=== PATIENT | female | born 1945 | race Two or more races ===

== ENCOUNTER 2017-02-28 08:11 | Day surgery (SDC) | payer MEDICARE, MEDICAID ==
[~2017-02-28] VITALS: Ht 154.9 cm; Wt 79.4 kg
[2017-02-28] VITALS (8 sets, daily range): BP systolic 126–155; BP diastolic 65–79
--- NOTE | 2017-02-28 06:41 | Anethesia Preoperative Eval ---
Anesthesia Pre-op PMH/ROS General Date of Evaluation: Feb 28, 2017 Time of Evaluation: 09:30 Anesthesiologist: marietta ASA Score: ASA 2 Mallampati Score Class I : Soft palate, uvula, fauces, pillars visible Class II: Soft palate, uvula, fauces visible Class III: Soft palate, base of uvula visible Class IV: Only hard plate visible Mallampati Classification: Class II Surgeon: leidy Diagnosis: irritable bowel syndrome Surgical Procedure: egd diagnostic/colonoscopy Anesthesia History: none Social History: smoking - non-smoker Family History: no anesthesia problems Allergies: Coded Allergies: No Known Allergies (Unverified , 02/27/17) Medications: see eMAR Past Medical History Cardiovascular: Reports: HTN Gastrointestinal/Genitourinary: Reports: other - constipation Neurologic/Psychiatric: Reports: depression/anxiety Musculoskeletal/Integumentary: Reports: DJD - left tka, OA PSxH Narrative: left tka, c/s Anesthesia Pre-op Phys. Exam Physician Exam Constitutional: NAD, other - flat ecchymotic lesion on right upper extremity Neurologic: CN 2-12 intact Cardiovascular: RRR Respiratory: CTA Gastrointestinal: S/NT/ND Airway Exam Mallampati Score: Class II MO: full Neck: supple TMD: 2fb ROM: full Teeth: intact Anesthesia Pre-op A/P Risk Assessment & Plan Assessment: irritable bowel syndrome Plan: egd diagnostic/colonoscopy Status Change Before Surgery: No Pre-Antibiotics Drug: KALLI Rodriguez Feb 28, 2017 06:41
[~2017-02-28 08:11] MED LIST: ASPIRIN81 MG ORAL; FISH OIL 1,0001 EAC1 ORAL; GLUCOSAMINE CH1 EAC3 PO; HYZAAR 100-251 EACH ORAL; LEXAPRO10 MG ORAL; LIPITOR20 MG ORAL; LR 1000ml 1,000 ML IVLG SCH; MULTIVITAMINS1 EAC2 ORAL; SENNA8.6 M2 PO; VITAMIN C500 M1 ORAL
--- NOTE | 2017-02-28 10:04 | Short Stay Surgery H&P ---
History of Present Illness History of Present Illness Chief Complaint Abdominal pains and screening colon HPI Harriett Nguyễn is a 71 year old female who was admitted on for Irritable Bowel Syndrome with abdominal pains and screening colon being done. Patient History Allergies: Coded Allergies: No Known Allergies (Unverified , 02/27/17) PAST MEDICAL HISTORY: (1) Hyperlipidemia (2) Coronary artery arteriosclerosis Past Surgeries: Social History: Medication History Scheduled Ascorbic Acid* (Vitamin C*), 1,000 MG ORAL DAILY, (Reported) Aspirin* (Aspirin*), 81 MG ORAL DAILY, (Reported) Atorvastatin Calcium* (Lipitor*), 20 MG ORAL DAILY, (Reported) Escitalopram Oxalate* (Lexapro*), 10 MG ORAL DAILY, (Reported) Gluc Hcl/Csa/Fantasma Hy/Hyalur Ac (Glucosamine Chondroitin Cap), 1 EACH PO DA, ( Reported) Losartan/Hydrochlorothiazide 100-25 Tablet (Hyzaar 100-25 Tablet), 1 TAB ORAL DAILY, (Reported) Multivitamins* (Multivitamins*), 1 TAB ORAL DAILY, (Reported) [place]-3 Fatty Acids/Fish Oil* (Fish Oil 1,000 Mg Softgel*), 1 CAP ORAL DAILY, ( Reported) Sennosides (Senna), 8.6 MG PO BID, (Reported) Review of Systems Cardiovascular: Reports: no symptoms Respiratory: Reports: no symptoms Skeletal: Reports: no symptoms Gastrointestinal: Reports: gastro esophageal reflux disease Genitourinary: Reports: no symptoms Neurologic: Reports: no symptoms Endocrine: Reports: no symptoms Hematologic: Reports: no symptoms Physical Exam Vital Signs Last Vital Signs Date Time Temp Pulse Resp B/P Pulse Ox O2 Delivery O2 Flow Rate FiO2 02/28/17 08:57 97.5 56 18 141/70 98 Room Air Skin: normal HENT: normal Heart: normal Lungs: normal Abdomen: normal Extremities: normal Genitourinary: normal Plan Plan of Care Uppr and lower GI edoscopy. Preop Interventions none. Summary of Findings See the reports Final Diagnosis: Attestation Are the patient's medical conditions optimized for surgery? Attestation Response: yes JUSTINE MCKEON Feb 28, 2017 10:04
--- NOTE | 2017-02-28 10:05 | Pre-Procedure Note/Attestation ---
Pre-Procedure Note/Attestation Complete Prior to Procedure Planned Procedure: left Procedure Narrative: Examination of the upepr and the lower MARY tract via endoscopy. Indications for Procedure Pre-Operative Diagnosis: R/O colon polyps/ CA and peptic ulcer/gastritis. Attestation I attest that I discussed the nature of the procedure; its benefits; risks and complications; and alternatives (and the risks and benefits of such alternatives ), prior to the procedure, with the patient (or the patient's legal medical customer service representative). I attest that, if there was a reasonable possibility of needing a blood transfusion, the patient (or the patient's legal medical customer service representative) was given the [place] Department of Health Services standardized written summary, pursuant to the Jani Jamil Blood Safety Act ([place] Health and Safety Code # 1645, as amended). I attest that I re-evaluated the patient just prior to the surgery and that there has been no change in the patient's H&P, except as documented below: JUSTINE MCKEON Feb 28, 2017 10:05
[2017-02-28] MEDS ORDERED: Propofol 10mg/ml 20ml IV ONE (10:15)
[2017-02-28] MEDS ORDERED: LR 1000ml ONE (10:15)
[2017-02-28] MEDS ORDERED: Lidocaine 1% MPF 10mg/ml 5ml ONE (10:15)
--- NOTE | 2017-02-28 10:59 | Endoscopy Procedure Note ---
Endoscopy Procedure Note Indication for Procedure: Abdominal pains, GERDS anad screening colon. Procedures Performed: EGD - Completely normal upper GI endoscopy. Biopsy done per random from gastric body, colonoscopy - Poor colon prep. Sifnificantly redundant colon. Melanosis coli and biospy done from rctum at 20 Cm and mid transverse. Specimen: yes Pt Tolerated Procedure Well: Yes Estimated Blood Loss: none Anesthesiologist: Dr. Monroy Anesthesia: moderate sedation Medication Given: see anesthesia record Implant(s) used?: No 50 yrs or older w/o bx or poly: Yes 10yrs. F/U not recommended: Yes 10 yrs. F/U needed: Yes 18 years or older w/prev. colo: Yes Med reason:<3 yrs.: System Reason:<3 yrs.: JUSTINE MCKEON Feb 28, 2017 10:59
--- NOTE | 2017-02-28 11:00 | Discharge Instructions ---
Discharge Instructions Discharge Instructions Follow up with: Visit the doctor in the office after 2 weeks. For Congestive Heart Failure Reminder Report to your physician any weight gain of 5 pounds or more in one week. JUSTINE MCKEON Feb 28, 2017 10:59
--- NOTE | 2017-02-28 11:18 | Immediate Post-Op Evaluation ---
Immediate Post-Op Evalulation Immediate Post-Op Evalulation Procedure: egd/colonscopy Date of Evaluation: Feb 28, 2017 Time of Evaluation: 11:16 IV Fluids: lr 300ml Blood Products: none Estimated Blood Loss: negligible Blood Pressure Systolic: 129 Blood Pressure Diastolic: 70 Pulse Rate: 57 Respiratory Rate: 18 O2 Sat by Pulse Oximetry: 100 Temperature (Fahrenheit): 97.0 Pain Score (1-10): 0 Nausea: No Vomiting: No Complications none Patient Status: awake, reacts, patent Hydration Status: adequate Drug: KALLI Rodriguez Feb 28, 2017 11:18
[2017-02-28] MEDS ORDERED: LR 1000ml 1,000 ML IVLG SCH (11:21)
--- NOTE | 2017-02-28 11:21 | 48 Hour Post Anesthesia Eval ---
Post Anesthesia Evaluation Procedure: egd/colonscopy Date of Evaluation: Feb 28, 2017 Time of Evaluation: 11:18 Blood Pressure Systolic: 128 0: 68 Pulse Rate: 55 Respiratory Rate: 18 Temperature (Fahrenheit): 97.0 O2 Sat by Pulse Oximetry: 100 Airway: patent Nausea: No Vomiting: No Pain Intensity: 0 Hydration Status: adequate Cardiopulmonary Status: stable Mental Status/LOC: patient returned to baseline Post-Anesthesia Complications: none Follow-up care needed: N/A KALLI RAND Feb 28, 2017 11:21
[2017-02-28] MEDS ORDERED: Midazolam 2mg/2ml Inj IVP PRN (11:30)
[2017-02-28] MEDS ORDERED: Atropine Inj 1mg/10ml Syr IV PRN (11:30)
[2017-02-28] MEDS ORDERED: DiphenhydrAMINE 50mg/ml Inj IVP PRN (11:30)
[2017-02-28] MEDS ORDERED: Hydromorphone 0.5mg/0.5ml inj IVP PRN (11:30)
--- NOTE | 2017-02-28 16:15 | Operative Note - Dictated ---
DATE OF OPERATION: 02/28/2017 PROCEDURE: Total colonoscopy. SURGEON: Pamela Claire M.D. PREOPERATIVE DIAGNOSIS: Screening colonoscopy. POSTOPERATIVE DIAGNOSES: 1. Significantly redundant colon. 2. Poor colonic preparation. 3. Melanosis coli and biopsies were taken from mid transverse and rectal area per random. MEDICATION USED: Per Dr. Allen. INSTRUMENT: GIF Olympus video colonoscope. DESCRIPTION OF PROCEDURE: The patient after arriving in the endoscopy unit, was told about the risks and benefits of the procedure, which she accepted and signed the informed consent. She was then put in the left lateral decubitus position. After adequate IV sedation, scope was gently passed through the anal area, which revealed no any major hemorrhoids. The rectum itself was also clear of any abnormality and mucosal changes. At this point, the scope was gradually advanced into the left colon, which was significantly redundant and filled with liquidy stool signifying lack of adequate preparation. Significant amount of time was taken to pass through this area reaching towards the splenic flexure. There was evidence of pigmentation over the colonic wall suggestive of [id number] melanosis coli. Random biopsy from the rectal area was obtained and subsequently the scope was passed through the splenic flexure guided into transverse colon, hepatic flexure, and finally advanced all the way into the base of the cecum. All these areas remained to be normal. The only finding that lack of adequate preparation of the colon, which made the examination difficult and multiple irrigation had to be given. As such, small diminutive colonic lesions could not be ruled out, but there was no any gross pathology as I mentioned. Finally, within 7 minutes, the scope was gradually pulled out and re-evaluation of the colon did not show any abnormality as I mentioned earlier. The patient tolerated the procedure well and left the endoscopy room in a good condition. Pamela Claire M.D. DR: JEM JOB#: [id number] CC:
--- NOTE | 2017-02-28 16:30 | Operative Note - Dictated ---
DATE OF OPERATION: 02/28/2017 PROCEDURE: Esophagogastroduodenoscopy with biopsy. SURGEON: Pamela Claire M.D. PREOPERATIVE DIAGNOSES: 1. Abdominal pain. 2. History of gastroesophageal reflux. POSTOPERATIVE DIAGNOSES: Completely normal upper gastrointestinal endoscopy. Biopsy was done per random from gastric body. MEDICATIONS USED: Per Dr. Allen. INSTRUMENT: GIF Olympus upper gastrointestinal video endoscope. DESCRIPTION OF PROCEDURE: The patient after arriving endoscopy unit, was told about risks and benefits of the procedure, which she accepted and signed the informed consent. She was then put on the left lateral decubitus position. After adequate IV sedation, the scope was gently passed through the cricopharyngeal area, was lodged into the upper esophagus, gradually advanced towards gastroesophageal junction. The entire length of the esophagus looked normal and there was no evidence of pathology such as varices, inflammatory process, stricture etc. GE junction also looked normal. At this time, the scope was advanced into the stomach. Gastric cavity was distended with insufflation of air. The areas of the fundus and the body and the antrum were examined in business technology professor fashion revealing no particular pathology and the gastric mucosa looked completely within normal limits. One random biopsy from gastric body obtained. Subsequently, the scope was passed through normal looking pylorus. First and second portion of duodenum were also found to be completely normal. At this time, the scope was pulled back into the stomach. A retroflexion maneuver was applied. The area of the gastroesophageal junction were examined, which looked normal as well. Finally, the scope was pulled out and the procedure was terminated. The patient tolerated the procedure well. Pamela Claire M.D. DR: JEM JOB#: [id number] CC:
== END 2017-02-28 12:25 | disposition home or self-care (01) ==
LOC: GAS 08:11
DX: Z12.11 Encounter for screening for malignant neoplasm of colon (principal); Q43.8 Other specified congenital malformations of intestine; K63.89 Other specified diseases of intestine; K29.50 Unspecified chronic gastritis without bleeding; B96.81 Helicobacter pylori [H. pylori] as the cause of diseases classified elsewhere; K21.9 Gastro-esophageal reflux disease without esophagitis; K59.00 Constipation, unspecified; I25.10 Atherosclerotic heart disease of native coronary artery without angina pectoris; E78.5 Hyperlipidemia, unspecified; M19.90 Unspecified osteoarthritis, unspecified site; F32.9 Major depressive disorder, single episode, unspecified; F41.9 Anxiety disorder, unspecified; Z79.82 Long term (current) use of aspirin; Z96.652 Presence of left artificial knee joint
CPT/HCPCS: 43239; 45380; J2704; J7120; 94003; 94150

== ENCOUNTER 2019-08-19 13:59 | Emergency (ER) | payer MEDICARE, OTHER ==
[~2019-08-19] VITALS: Ht 160 cm; Wt 80.3 kg
[~2019-08-19 13:59] MED LIST changes: -LR 1000ml 1,000 ML IVLG SCH
[2019-08-19 14:10] VITALS: BP 163/79
--- NOTE | 2019-08-19 14:10 | NUR ---
ED Nurse Note: Patient brought in by RA from home c/o left leg pain due to sciatica x 1 week. Patient kory to walk with limitation. No SOB. Breathing even and unlabored. Afebrile. VSS.
--- NOTE | 2019-08-19 14:40 | NUR ---
ED Nurse Note: ERPA at bedside.
--- NOTE | 2019-08-19 15:18 | Emergency Room Report ---
History of Present Illness General Chief Complaint: Pain Source: EMS Present Illness HPI 73-year-old female presents to the emergency department brought by ambulance complaining of 9 out of 10 severity persistent progressive left-sided buttock pain with radiation down the posterior aspect of the left lower extremity x1 week. Patient was previously evaluated by her primary care provider who started her on Medrol Dosepak, ibuprofen and Robaxin. Patient reports little to no relief with these medications and states that today her symptoms were worse. Patient reports one episode of sciatic pain similar in character approximately 3 years ago where she received pain medication and spinal injection at [facility]. Patient denies recent spinal procedures/injections. Patient denies saddle anesthesia, lower extremity paresthesia, lower extremity weakness, difficulty with ambulation, urinary incontinence or retention. Patient also denies bowel incontinence. She denies trauma or fall. Patient reports that she has relief with laying flat or when she standing and walking. Patient reports exacerbation of her symptoms in the sitting position even if she is sitting up straight. She reports her pain to be intermittent depending on what position she is in. Denies fevers, chills, night sweats or history of neoplastic disease. She denies abdominal pain, dysuria, hematuria or urinary frequency. PT. reports PmHx of HTN, calcification of Heart vessels and GERD. Allergies: Coded Allergies: No Known Allergies (Unverified , 02/27/17) Patient History Past Medical History: see triage record, HTN Past Surgical History: none Pertinent Family History: none Now: No Reviewed Nursing Documentation: PMH: Agreed; PSxH: Agreed Nursing Documentation-PMH Hx Cardiac Problems: Yes - heart has a little calcium, 2 blocked heart veins but not important accdg t Hx Hypertension: Yes Hx Cancer: No Hx Gastrointestinal Problems: Yes - hx constipation Hx Neurological Problems: No Review of Systems All Other Systems: negative except mentioned in HPI Physical Exam Vital Signs Date Time Temp Pulse Resp B/P (MAP) Pulse Ox O2 Delivery O2 Flow Rate FiO2 08/19/19 13:54 98.4 66 17 163/79 (107) 97 Room Air Sp02 EP Interpretation: reviewed, normal General Appearance: no apparent distress, alert, GCS 15, non-toxic Head: normocephalic, atraumatic Eyes: bilateral eye normal inspection, bilateral eye PERRL ENT: hearing grossly normal, normal voice Neck: full range of motion Respiratory: lungs clear, normal breath sounds, speaking full sentences Cardiovascular #1: regular rate, rhythm Gastrointestinal: non tender, soft Genitourinary: normal inspection, no CVA tenderness Musculoskeletal: normal range of motion, gait/station normal, other - patient is ambulatory full range of motion able to lie flat, pain exacerbation upon certain degree of flexion of the lumbar area. No midline back pain/spinal pain , left upper gluteus tenderness with reproducible pain upon palpation of the upper left buttock. No saddle anesthesia or cauda equina symptoms. Neurologic: alert, motor strength/tone normal, oriented x3, sensory intact, responsive, speech normal Psychiatric: judgement/insight normal Skin: normal color Medical Decision Making PA Attestation Dr. Ward Is my supervising Physician whom patient management has been discussed with. Diagnostic Impression: Primary Impression: Left sciatic nerve pain ER Course 73-year-old female presents to the emergency department brought by ambulance complaining of 9 out of 10 severity persistent progressive left-sided buttock pain with radiation down the posterior aspect of the left lower extremity x1 week. Patient was previously evaluated by her primary care provider who started her on Medrol Dosepak, ibuprofen and Robaxin. Patient reports little to no relief with these medications and states that today her symptoms were worse. Patient reports one episode of sciatic pain similar in character approximately 3 years ago where she received pain medication and spinal injection at [facility]. Patient denies recent spinal procedures/injections. Patient denies saddle anesthesia, lower extremity paresthesia, lower extremity weakness, difficulty with ambulation, urinary incontinence or retention. Patient also denies bowel incontinence. She denies trauma or fall. Patient reports that she has relief with laying flat or when she standing and walking. Patient reports exacerbation of her symptoms in the sitting position even if she is sitting up straight. She reports her pain to be intermittent depending on what position she is in. Denies fevers, chills, night sweats or history of neoplastic disease. She denies abdominal pain, dysuria, hematuria or urinary frequency. PT. reports PmHx of HTN, calcification of Heart vessels and GERD. Ddx considered but are not limited to Fracture, dislocation, contusion, epidural abscess, Sprain/Strain/Spasm, Sciatica, pyelonephritis just to name a few. Vital signs: are WNL, pt. is afebrile H&PE are most consistent with sciatica--patient is ambulatory full range of motion able to lie flat, pain exacerbation upon certain degree of flexion of the lumbar area. No midline back pain/spinal pain, left upper gluteus tenderness with reproducible pain upon palpation of the upper left buttock. No saddle anesthesia or cauda equina symptoms. I spoke with this patient's PCP Dr. burch whom states that he recently saw patient and prescribed her Motrin, Medrol Dosepak and Robaxin. Discussed plan of care to be pain control here in the ED with anticipation discharge home on outpatient pain control medications. Pt. able to tolerate straight leg raise. ORDERS: -UA: WNL X-ray not required at this time, no spinous process tenderness ED INTERVENTIONS: -Tramadol PO - Lidoderm TP Re-Evaluation: pt. states her pain has subsided with ED interventions -I do not identify an emergent condition at this time. With current presentation , pt. is stable for close outpatient follow up and conservative treatment. D/ w pt. to return promptly to ED with worsening or new symptoms.- Pt. verbalizes' understanding and agreement with proposed treatment plan.proposed treatment plan. DISCHARGE: At this time pt. is stable for d/c to home. Will provide printed patient care instructions, and any necessary prescriptions. Care plan and follow up instructions have been discussed with the patient prior to discharge. Labs Test 08/19/19 14:54 Urine Color Pale yellow Urine Appearance Clear Urine pH 8 (4.5-8.0) Urine Specific [place] 1.010 (1.005-1.035) Urine Protein Negative (NEGATIVE) Urine Glucose (UA) Negative (NEGATIVE) Urine Ketones Negative (NEGATIVE) Urine Blood 1+ (NEGATIVE) Urine Nitrite Negative (NEGATIVE) Urine Bilirubin Negative (NEGATIVE) Urine Urobilinogen Normal MG/DL (0.0-1.0) Urine Leukocyte Esterase 2+ (NEGATIVE) Last Vital Signs Date Time Temp Pulse Resp B/P (MAP) Pulse Ox O2 Delivery O2 Flow Rate FiO2 08/19/19 13:54 98.4 66 17 163/79 (107) 97 Room Air Status: improved Disposition: HOME, SELF-CARE Condition: Stable Scripts Lidocaine Patch* (Lidoderm Patch*) 1 Each Adh..patch 1 PATCH TOPIC DAILY, #30 PATCH 0 Refills Patch(es) may remain in place for up to 12 hours in any 24-hour period. Prov: Hien Norris 08/19/19 Tramadol Hcl* (ULTRAM*) 50 Mg Tablet 50 MG ORAL Q6H PRN for For Pain, #12 TAB 0 Refills Prov: Hien Norris 08/19/19 Patient Instructions: Sciatica, [id number] Additional Instructions: Take medications as directed. *!* Follow up with a Primary Care Provider ( Dr. CHAO) in 3-5 days, even if your symptoms have resolved. Return sooner to ED if new symptoms occur, or current symptoms become worse. - Please note that this Emergency Department Report was dictated using [employer] twister technology software, occasionally this can lead to erroneous entry secondary to interpretation by the dictation equipment. Hien Norris Aug 19, 2019 15:18
[2019-08-19] MEDS ORDERED: traMADol 50mg tab ORAL ONE (15:30)
[2019-08-19 15:35] LABS: APPEARANCE,URINE CLEAR; BILIRUBIN, URINE NEGATIVE (NEGATIVE); COLOR,URINE PALE YELLOW; GLUCOSE, URINE (UA) NEGATIVE (NEGATIVE); KETONES,URINE NEGATIVE (NEGATIVE); LEUKOCYTE ESTERASE ,URINE 2+ (NEGATIVE); NITRITE,URINE NEGATIVE (NEGATIVE); PH,URINE 8 (4.5-8.0); PROTEIN,URINE NEGATIVE (NEGATIVE); UROBILINOGEN,URINE NORMAL MG/DL (0.0-1.0)
[2019-08-19] MEDS ORDERED: traMADol 50mg tab ONE (15:41)
[2019-08-19] MEDS ORDERED: LIDODERM700 M1 TOPIC (16:22)
[2019-08-19] MEDS ORDERED: TRAMADOL HCL50 MG ORAL (16:22)
[2019-08-19 16:43] VITALS: BP 163/79
--- NOTE | 2019-08-19 16:43 | NUR ---
ED Nurse Note: Pt cleared by ERMD for discharge. DC instructions/prescription was given and explained to pt and verbalized understanding of teachings. All medical deviecs such as ID band removed. Pt is AAO x4, ambulatory and left with all personal belongings.
== END 2019-08-19 16:43 | disposition home or self-care (01) ==
LOC: EDBD 13:59 → EMR 16:40
DX: M54.32 Sciatica, left side (principal); I10 Essential (primary) hypertension
CPT/HCPCS: 81003; 99283